=== PATIENT | male | born 1955 | race Caucasian/White ===

== ENCOUNTER 2018-02-18 00:20 | Emergency (ER) | payer MEDICAID, MEDICARE, SELFPAY ==
[2018-02-18 00:57] VITALS: BP 126/71
[2018-02-18] MEDS ORDERED: Acetaminophen/HYDROcodone 325-5 MG Tab PO ONE (01:26)
--- NOTE | 2018-02-18 01:33 | EDM.PDOC ---
ED HPI GENERAL MEDICAL PROBLEM - General Chief Complaint: Lower Extremity Injury/Pain Stated Complaint: LEG PAIN Time Seen by Provider: 02/18/18 01:15 Source of Information: Reports: Patient, Old Records, RN History Limitations: Reports: No Limitations - History of Present Illness INITIAL COMMENTS - FREE TEXT/NARRATIVE: 62 yo male dialysis patient presents with R hip pain. Is in the process of getting a new doctor in [place] soon. Has had on and off R hip pain, he thinks has been called sciatica. He has gotten reasonable relief from hydrocodone in the past, but is out of it. Pain is somewhat worse tonight so comes to the ER. Onset: Unknown/Unsure Duration: Chronic, Waxing/Waning Location: Reports: Lower Extremity, Right Quality: Reports: Ache, Burning Severity: Moderate Improves with: Reports: Medication Worsens with: Reports: Other (unknown) Context: Reports: Other (chronic) Associated Symptoms: Reports: No Other Symptoms Treatments STUDENT COUNSELOR: Reports: Other (see below) (none) - Related Data Allergies Allergy/AdvReac Type Severity Reaction Status Date / Time No Known Allergies Allergy Verified 12/22/16 03:17 Home Meds: Home Meds Aspirin [Halfprin] 81 mg PO DAILY 04/18/15 [History] Metoprolol Tartrate 50 mg PO DAILY 04/18/15 [History] Simvastatin 20 mg PO BEDTIME 04/18/15 [History] Acetaminophen [Tylenol] 650 mg PO Q4H PRN 02/18/18 [History] Past Medical History Other HEENT History: Hollenhorst plague right eye Cardiovascular History: Reports: Aneurysm, High Cholesterol, Hypertension, Other (See Below) Other Cardiovascular History: AAA Respiratory History: Reports: COPD, Other (See Below) Other Respiratory History: home oxygen Genitourinary History: Reports: Acute Renal Failure, Chronic Renal Insuffiency, Dialysis, Renal Calculus, Other (See Below) Other Genitourinary History: last dialysis friday 02/16 Musculoskeletal History: Reports: Fracture, Other (See Below) Other Musculoskeletal History: degenerative hips Psychiatric History: Reports: Addiction, Anxiety, Depression Endocrine/Metabolic History: Reports: Diabetes, Type II Hematologic History: Reports: Other (See Below) Other Hematologic History: hyperkalemia - Infectious Disease History Infectious Disease History: Reports: Chicken Pox - Past Surgical History Other Musculoskeletal Surgeries/Procedures:: broke arm Social & Family History - Family History Respiratory: Reports: Other (See Below) - Tobacco Use Smoking Status *Q: Former Smoker Years of Tobacco use: 44 Packs/Tins Daily: 1 Used Tobacco, but Quit: Yes Month/Year Tobacco Last Used: 2017 - Caffeine Use Caffeine Use: Reports: Coffee - Recreational Drug Use Recreational Drug Use: No Review of Systems - Review of Systems Review Of Systems: See Below Constitutional: Reports: No Symptoms Eyes: Reports: No Symptoms Ears: Reports: No Symptoms Nose: Reports: No Symptoms Mouth/Throat: Reports: No Symptoms Respiratory: Reports: No Symptoms Cardiovascular: Reports: No Symptoms GI/Abdominal: Reports: No Symptoms Genitourinary: Reports: No Symptoms Musculoskeletal: Reports: No Symptoms Skin: Reports: No Symptoms Neurological: Reports: Other (R hip area pain that radiates down his leg to the level of the calf, not worse with weight bearing. ) ED EXAM, GENERAL - Physical Exam Exam: See Below Exam Limited By: No Limitations General Appearance: Alert, WD/WN, No Apparent Distress Back Exam: Normal Inspection. No: CVA Tenderness (R), CVA Tenderness (L), Muscle Spasm, Paraspinal Tenderness, Vertebral Tenderness Extremities: Normal Inspection, Normal Range of Motion, Other (Pain in the R sciatic notch.) Neurological: Other (Straight leg raising positive on the right. ) Psychiatric: Normal Affect, Normal Mood Skin Exam: Warm, Dry, Intact, Normal Color, No Rash Course - Vital Signs Last Recorded V/S: Last Vital Signs Temp 36.8 C 02/18/18 00:56 Pulse 89 02/18/18 00:56 Resp 22 H 02/18/18 00:56 BP 126/71 02/18/18 00:56 Pulse Ox 94 L 02/18/18 00:56 - Orders/Labs/Meds Meds: Medications Discontinued Medications Generic Name Dose Route Start Last Admin Trade Name Freq PRN Reason Stop Dose Admin Hydrocodone Bitart/Acetaminophen 1 tab 02/18/18 01:26 [place] 325-5 Mg PO 02/18/18 01:27 ONETIME ONE Departure - Departure Time of Disposition: 01:33 Disposition: Home, Self-Care 01 Condition: Fair Clinical Impression: Sciatica of right side - Discharge Information Referrals: PCP,None [Primary Care Provider] - Forms: ED Department Discharge Additional Instructions: Take [place] as needed for pain relief. See your family doctor CRISTINA to get further treatment and testing for your current disorder.
== END 2018-02-18 01:56 | disposition home or self-care (01) ==
LOC: JP.ED 00:20
DX: M54.31 Sciatica, right side (principal); I12.9 Hypertensive chronic kidney disease with stage 1 through stage 4 chronic kidney disease, or unspecified chronic kidney disease; E78.00 Pure hypercholesterolemia, unspecified; J44.9 Chronic obstructive pulmonary disease, unspecified; F41.9 Anxiety disorder, unspecified; F32.9 Major depressive disorder, single episode, unspecified; E11.22 Type 2 diabetes mellitus with diabetic chronic kidney disease; Z87.891 Personal history of nicotine dependence; Z99.2 Dependence on renal dialysis; Z87.442 Personal history of urinary calculi; Z79.82 Long term (current) use of aspirin; Z79.899 Other long term (current) drug therapy
CPT/HCPCS: 99283; A9270

== ENCOUNTER 2018-03-09 01:40 | Emergency (ER) | payer MEDICARE ==
[2018-03-09 01:57] VITALS: BP 157/93
[2018-03-09] MEDS ORDERED: LORazepam 1 MG Tab PO ONE (02:20)
--- NOTE | 2018-03-09 02:26 | EDM.PDOC ---
ED HPI GENERAL MEDICAL PROBLEM - General Chief Complaint: General Stated Complaint: MUSCLE SPASMS Time Seen by Provider: 03/09/18 02:00 Source of Information: Reports: Patient History Limitations: Reports: No Limitations - History of Present Illness INITIAL COMMENTS - FREE TEXT/NARRATIVE: 62-year-old male, chronic COPD year, end-stage renal disease on dialysis who is having spasms at night when trying to sleep. It's mostly in his legs. It's been going on for weeks but tonight was worse, he came in because he needs to get some sleep because he has dialysis tomorrow. He has lost touch with his primary provider. He has no fevers or chills, nausea vomiting, diarrhea or rashes. Denies chest pain. Onset: Unknown/Unsure Associated Symptoms: Reports: Shortness of Breath (Shortness of breath is chronic, he is O2 dependent which he shuts off when he is smoking) - Related Data Allergies Allergy/AdvReac Type Severity Reaction Status Date / Time No Known Allergies Allergy Verified 03/09/18 01:57 Home Meds: Home Meds Aspirin [Halfprin] 81 mg PO DAILY 04/18/15 [History] Metoprolol Tartrate 50 mg PO DAILY 04/18/15 [History] Simvastatin 20 mg PO BEDTIME 04/18/15 [History] Acetaminophen [Tylenol] 650 mg PO Q4H PRN 02/18/18 [History] Furosemide 20 mg PO DAILY 03/09/18 [History] Past Medical History HEENT History: Reports: Other (See Below) Other HEENT History: Hollenhorst plague right eye Cardiovascular History: Reports: Aneurysm, High Cholesterol, Hypertension, Other (See Below) Other Cardiovascular History: AAA Respiratory History: Reports: COPD, Other (See Below) Other Respiratory History: home oxygen Genitourinary History: Reports: Acute Renal Failure, Chronic Renal Insuffiency, Dialysis, Renal Calculus, Other (See Below) Other Genitourinary History: last dialysis friday 02/16 Musculoskeletal History: Reports: Fracture, Other (See Below) Other Musculoskeletal History: degenerative hips Psychiatric History: Reports: Addiction, Anxiety, Depression Endocrine/Metabolic History: Reports: Diabetes, Type II Hematologic History: Reports: Other (See Below) Other Hematologic History: hyperkalemia - Infectious Disease History Infectious Disease History: Reports: Chicken Pox - Past Surgical History Musculoskeletal Surgical History: Reports: Other (See Below) Other Musculoskeletal Surgeries/Procedures:: broke arm Social & Family History - Family History Respiratory: Reports: Other (See Below) - Tobacco Use Smoking Status *Q: Current Some Day Smoker Years of Tobacco use: 50 Packs/Tins Daily: 0.5 Used Tobacco, but Quit: Yes Month/Year Tobacco Last Used: 2017 Second Hand Smoke Exposure: Yes - Caffeine Use Caffeine Use: Reports: Coffee - Recreational Drug Use Recreational Drug Use: No ED ROS GENERAL - Review of Systems Review Of Systems: See Below Constitutional: Denies: Fever, Chills Respiratory: Reports: Shortness of Breath, Cough Cardiovascular: Denies: Chest Pain Endocrine: Reports: Fatigue GI/Abdominal: Denies: Nausea, Vomiting Musculoskeletal: Reports: Other (Muscle cramps and spasms) ED EXAM, GENERAL - Physical Exam Exam: See Below Exam Limited By: No Limitations General Appearance: Alert, No Apparent Distress Respiratory/Chest: No Respiratory Distress, Lungs Clear Cardiovascular: Regular Rate, Rhythm Extremities: Other (Occasional spasm of the leg muscle is present but he admits that he is much better now than he was earlier. There is no tenderness to palpation of the lower extremity muscles). No: Pedal Edema Course - Vital Signs Last Recorded V/S: Last Vital Signs Temp 98.2 F 03/09/18 01:54 Pulse 95 03/09/18 01:54 Resp 23 H 03/09/18 01:54 BP 157/93 H 03/09/18 01:54 Pulse Ox 97 03/09/18 01:54 - Orders/Labs/Meds Meds: Medications Discontinued Medications Generic Name Dose Route Start Last Admin Trade Name Autumn PRN Reason Stop Dose Admin Lorazepam 1 mg 03/09/18 02:20 03/09/18 02:32 Ativan PO 03/09/18 02:21 1 mg ONETIME ONE Administration - Re-Assessments/Exams Free Text/Narrative Re-Assessment/Exam: 03/09/18 02:24 This patient is possibly having some muscle spasm secondary to electrolyte abnormalities prior to dialysis. He is receiving dialysis and just a few hours however, I asked him to see Dr. Lazar in [place] if he is not improved after dialysis. He was given 1 mg of Ativan to use for sleep tonight, with a prescription for 5 additional doses to use in the future. Any further medications need to come from a primary care provider. Departure - Departure Time of Disposition: 02:40 Disposition: Home, Self-Care 01 Condition: Fair Clinical Impression: Restless leg syndrome - Discharge Information Instructions: Restless Legs Syndrome Referrals: PCP,None [Primary Care Provider] - Forms: ED Department Discharge Care Plan Goals: Try Ativan up to twice daily to relax the muscles and help sleep. It is very important that you follow up with a primary provider, and receive your dialysis tomorrow as scheduled.
== END 2018-03-09 02:44 | disposition home or self-care (01) ==
LOC: JP.ED 01:40
DX: G25.81 Restless legs syndrome (principal); J44.9 Chronic obstructive pulmonary disease, unspecified; N18.6 End stage renal disease; E11.22 Type 2 diabetes mellitus with diabetic chronic kidney disease; I12.9 Hypertensive chronic kidney disease with stage 1 through stage 4 chronic kidney disease, or unspecified chronic kidney disease; Z79.82 Long term (current) use of aspirin; Z79.899 Other long term (current) drug therapy; Z87.891 Personal history of nicotine dependence
CPT/HCPCS: 99285; A9270

== ENCOUNTER 2018-06-26 21:23 | Emergency (ER) | payer MEDICARE ==
[2018-06-26] MEDS ORDERED: fentaNYL 100 MCG/2 ML SDV IM ONE (22:27)
--- NOTE | 2018-06-26 22:38 | EDM.PDOC ---
ED HPI GENERAL MEDICAL PROBLEM - General Chief Complaint: Lower Extremity Injury/Pain Stated Complaint: FELL HURT LEG Time Seen by Provider: 06/26/18 22:23 Source of Information: Reports: Patient, RN Notes Reviewed History Limitations: Reports: No Limitations - History of Present Illness INITIAL COMMENTS - FREE TEXT/NARRATIVE: 63-year-old gentleman presents to the emergency department today with complaint of right hip pain, he states he fell earlier this morning landing on his right hip the pain has gotten progressively worse throughout the day, he is a dialysis patient as well completed dialysis today he is not taking anything for pain right leg Pain Score (Numeric/FACES): 5 - Related Data Allergies Allergy/AdvReac Type Severity Reaction Status Date / Time No Known Allergies Allergy Verified 06/26/18 21:59 Home Meds: Home Meds Aspirin [Halfprin] 81 mg PO DAILY 04/18/15 [History] Metoprolol Tartrate 50 mg PO DAILY 04/18/15 [History] Simvastatin 20 mg PO BEDTIME 04/18/15 [History] Acetaminophen [Tylenol] 650 mg PO Q4H PRN 02/18/18 [History] Furosemide 20 mg PO DAILY 03/09/18 [History] Past Medical History HEENT History: Reports: Other (See Below) Other HEENT History: Hollenhorst plague right eye Cardiovascular History: Reports: Aneurysm, High Cholesterol, Hypertension, SOB on Exertion, Other (See Below) Other Cardiovascular History: AAA Respiratory History: Reports: COPD, SOB, Other (See Below) Other Respiratory History: home oxygen Gastrointestinal History: Reports: Chronic Diarrhea Genitourinary History: Reports: Acute Renal Failure, Chronic Renal Insuffiency, Dialysis, Renal Calculus, Other (See Below) Other Genitourinary History: last dialysis friday06/01/2018 Musculoskeletal History: Reports: Fracture, Other (See Below) Other Musculoskeletal History: degenerative hips Psychiatric History: Reports: Addiction, Anxiety, Depression Endocrine/Metabolic History: Reports: Diabetes, Type II Hematologic History: Reports: Iron Deficiency, Other (See Below) Other Hematologic History: hyperkalemia - Infectious Disease History Infectious Disease History: Reports: Chicken Pox, Measles, Mumps - Past Surgical History HEENT Surgical History: Reports: None Musculoskeletal Surgical History: Reports: Other (See Below) Other Musculoskeletal Surgeries/Procedures:: broke arm Social & Family History - Family History Family Medical History: Noncontributory Respiratory: Reports: Other (See Below) - Tobacco Use Smoking Status *Q: Current Every Day Smoker Years of Tobacco use: 40 Packs/Tins Daily: 0.5 - Caffeine Use Caffeine Use: Reports: Coffee - Recreational Drug Use Recreational Drug Use: No Review of Systems - Review of Systems Review Of Systems: See Below Constitutional: Reports: No Symptoms Musculoskeletal: Reports: Joint Pain (Right hip pain) Skin: Reports: No Symptoms Neurological: Reports: No Symptoms ED EXAM, GENERAL - Physical Exam Exam: See Below Free Text/Narrative:: Examination of the right hip, will not tolerate any internal/external rotation he is tender to palpation over the greater trochanter Exam Limited By: No Limitations General Appearance: Alert, WD/WN, No Apparent Distress Respiratory/Chest: No Respiratory Distress, Lungs Clear, Normal Breath Sounds, No Accessory Muscle Use Cardiovascular: Regular Rate, Rhythm, No Murmur Course - Vital Signs Last Recorded V/S: Last Vital Signs Temp 98.7 F 06/26/18 22:02 Pulse 97 06/26/18 22:45 Resp 16 06/26/18 22:45 BP 136/77 06/26/18 22:45 Pulse Ox 93 L 06/26/18 22:45 - Orders/Labs/Meds Orders: Active Orders 24 hr Category Date Time Status Peripheral IV Care [RC] . DIRECTED Care 06/27/18 00:33 Ordered Hip Min 2V or 3V Rt [CR] Stat Exams 06/26/18 22:27 Taken Hip wo Cont Rt [CT] Stat Exams 06/26/18 23:04 Taken Sodium Chloride 0.9% [Saline Flush] Med 06/27/18 00:32 Ordered 10 ml FLUSH ASDIRECTED PRN Peripheral IV Insertion Adult [OM.PC] Urgent Oth 06/27/18 00:32 Ordered Medication Orders Sodium Chloride (Saline Flush) 10 ml FLUSH ASDIRECTED PRN PRN Reason: Keep Vein Open Meds: Medications Generic Name Dose Route Start Last Admin Trade Name Freq PRN Reason Stop Dose Admin Sodium Chloride 10 ml 06/27/18 00:32 Saline Flush FLUSH ASDIRECTED PRN Keep Vein Open Discontinued Medications Generic Name Dose Route Start Last Admin Trade Name Freq PRN Reason Stop Dose Admin Fentanyl 50 mcg 06/26/18 22:27 06/26/18 22:32 Sublimaze IM 06/26/18 22:28 50 mcg ONETIME ONE Administration Departure - Departure Time of Disposition: 00:45 Disposition: DC/Tfer to Acute Hospital 02 Condition: Fair Clinical Impression: Closed fracture of single pubic ramus of pelvis Qualifiers: Encounter type: initial encounter Laterality: right Qualified Code(s): S32.591A - Other specified fracture of right pubis, initial encounter for closed fracture Closed right acetabular fracture Qualifiers: Encounter type: initial encounter Sublocation of acetabulum: anterior column Fracture alignment: nondisplaced Qualified Code(s): S32.434A - Nondisplaced fracture of anterior column [iliopubic] of right acetabulum, initial encounter for closed fracture - Discharge Information Referrals: Rodolfo Browning COUNSELING DIRECTOR [Primary Care Provider] - Forms: ED Department Discharge - My Orders Last 24 Hours: My Active Orders 06/26/18 22:27 Hip Min 2V or 3V Rt [CR] Stat 06/26/18 23:04 Hip wo Cont Rt [CT] Stat 06/27/18 00:32 Sodium Chloride 0.9% [Saline Flush] 10 ml FLUSH ASDIRECTED PRN Peripheral IV Insertion Adult [OM.PC] Urgent 06/27/18 00:33 Peripheral IV Care [RC] . DIRECTED - Assessment/Plan Last 24 Hours: My Active Orders 06/26/18 22:27 Hip Min 2V or 3V Rt [CR] Stat 06/26/18 23:04 Hip wo Cont Rt [CT] Stat 06/27/18 00:32 Sodium Chloride 0.9% [Saline Flush] 10 ml FLUSH ASDIRECTED PRN Peripheral IV Insertion Adult [OM.PC] Urgent 06/27/18 00:33 Peripheral IV Care [RC] . DIRECTED Plan: Assessment Acuity = acute Site and laterality = nondisplaced fractures right inferior pubic ramus and right acetabular anterior column Etiology = secondary to a fall Manifestations = none Location of injury = Home Lab values = CT scan describes fractures above Plan Called discussed case with Dr. Madden hospitalist loss control consultant at [facility] kindly accept the patient in transport will be transported via EMS ground , also discussed case with orthopedics on-call Dr. Henderson who recommended nonoperative management at this time touch weightbearing and follow-up with orthopedics This note was dictated using [employer] voice recognition software please call with any questions on syntax or grammar.
[2018-06-27] MEDS ORDERED: Sodium Chloride 0.9% 10 ML Syringe FLUSH PRN (00:32)
[2018-06-27 01:01] VITALS: BP 144/85
--- NOTE | 2018-06-29 08:45 | CR ---
Hip Min 2V or 3V Rt CLINICAL HISTORY: Trauma, pain FINDINGS: No acute fracture or dislocation is noted. No destructive changes are present. The joint sp aces are fairly well maintained. There are moderate atheromatous changes in the aorta and iliac arter ies. The there is a 6.5 cm distal abdominal aortic aneurysm. Impression: No fracture or subluxation Abdominal aortic aneurysm
== END 2018-06-27 01:48 ==
LOC: JP.ED 21:23
DX: S32.434A Nondisplaced fracture of anterior column [iliopubic] of right acetabulum, initial encounter for closed fracture (principal); S32.591A Other specified fracture of right pubis, initial encounter for closed fracture; E78.00 Pure hypercholesterolemia, unspecified; I12.9 Hypertensive chronic kidney disease with stage 1 through stage 4 chronic kidney disease, or unspecified chronic kidney disease; N18.9 Chronic kidney disease, unspecified; E11.22 Type 2 diabetes mellitus with diabetic chronic kidney disease; F41.9 Anxiety disorder, unspecified; F32.9 Major depressive disorder, single episode, unspecified; F17.210 Nicotine dependence, cigarettes, uncomplicated; Z79.82 Long term (current) use of aspirin; Z79.899 Other long term (current) drug therapy; W19.XXXA Unspecified fall, initial encounter
CPT/HCPCS: 73502; 73700; 96372; 99284; J3010; J7050

== ENCOUNTER 2018-07-22 02:25 | Emergency (ER) | payer MEDICARE, MEDICAID ==
--- NOTE | 2018-07-22 03:08 | EDM.PDOC ---
ED HPI GENERAL MEDICAL PROBLEM - General Chief Complaint: Gastrointestinal Problem Time Seen by Provider: 07/22/18 03:08 Source of Information: Reports: Patient History Limitations: Reports: No Limitations - History of Present Illness INITIAL COMMENTS - FREE TEXT/NARRATIVE: pt arrived stating that he has had 5 bloody stools. He did have one while he as here and this was full of clots/ Onset: Today, Sudden Duration: Hour(s): Location: Reports: Abdomen, Other (pt is passing alot of blood. ) Associated Symptoms: Reports: Other (pt is having bloody stools. ) - Related Data Allergies Allergy/AdvReac Type Severity Reaction Status Date / Time No Known Allergies Allergy Verified 07/22/18 03:13 Home Meds: Home Meds Aspirin [Halfprin] 81 mg PO DAILY 04/18/15 [History] Metoprolol Tartrate 50 mg PO DAILY 04/18/15 [History] Simvastatin 20 mg PO BEDTIME 04/18/15 [History] Acetaminophen [Tylenol] 650 mg PO Q4H PRN 02/18/18 [History] Furosemide 20 mg PO DAILY 03/09/18 [History] Hydrocodone/Acetaminophen [Hydrocodon-Acetaminophen 5-325] 1 tab PO TID PRN 07/21 [History] Past Medical History HEENT History: Reports: Other (See Below) Other HEENT History: Hollenhorst plague right eye Cardiovascular History: Reports: Aneurysm, High Cholesterol, Hypertension, SOB on Exertion, Other (See Below) Other Cardiovascular History: AAA Respiratory History: Reports: COPD, SOB, Other (See Below) Other Respiratory History: home oxygen Gastrointestinal History: Reports: Chronic Diarrhea Genitourinary History: Reports: Acute Renal Failure, Chronic Renal Insuffiency, Dialysis, Renal Calculus, Other (See Below) Other Genitourinary History: last dialysis friday06/01/2018 Musculoskeletal History: Reports: Fracture, Other (See Below) Other Musculoskeletal History: degenerative hips Psychiatric History: Reports: Addiction, Anxiety, Depression Endocrine/Metabolic History: Reports: Diabetes, Type II Hematologic History: Reports: Iron Deficiency, Other (See Below) Other Hematologic History: hyperkalemia - Infectious Disease History Infectious Disease History: Reports: Chicken Pox, Measles, Mumps - Past Surgical History Head Surgeries/Procedures: Reports: None HEENT Surgical History: Reports: None Musculoskeletal Surgical History: Reports: Other (See Below) Other Musculoskeletal Surgeries/Procedures:: broke arm Social & Family History - Family History Family Medical History: Noncontributory Respiratory: Reports: Other (See Below) - Caffeine Use Caffeine Use: Reports: Coffee ED ROS GENERAL - Review of Systems Review Of Systems: See Below Constitutional: Reports: No Symptoms HEENT: Reports: No Symptoms Respiratory: Reports: No Symptoms Cardiovascular: Reports: No Symptoms Endocrine: Reports: No Symptoms GI/Abdominal: Reports: Bloody Stool, Other (Pain in his lower abdoman. ) : Reports: No Symptoms Musculoskeletal: Reports: No Symptoms Skin: Reports: No Symptoms Neurological: Reports: No Symptoms ED EXAM, GI/ABD - Physical Exam Exam: See Below Text/Narrative:: Pt arrived having 5 very bloody stools. Exam Limited By: No Limitations General Appearance: Alert, Moderate Distress Ears: Normal TMs Nose: Normal Inspection Throat/Mouth: Normal Inspection Head: Atraumatic Neck: Normal Inspection Respiratory/Chest: No Respiratory Distress Cardiovascular: Regular Rate, Rhythm GI/Abdominal Exam: Soft, Other ( tender in the lower abdoman. ) (Male) Exam: Deferred Rectal (Males) Exam: Deferred Back Exam: Normal Inspection Extremities: Normal Inspection Neurological: Alert, Oriented, Normal Cognition Course - Vital Signs Last Recorded V/S: Last Vital Signs Temp 36.3 C 07/22/18 03:51 Pulse 91 07/22/18 03:51 Resp 18 07/22/18 03:51 BP 149/84 H 07/22/18 03:51 Pulse Ox 95 07/22/18 03:51 - Orders/Labs/Meds Labs: Laboratory Tests 07/22/18 07/22/18 07/22/18 Range/Units 03:00 03:00 03:05 WBC 7.9 (4.5-11.0) K/uL RBC 3.38 L (4.30-5.90) M/uL Hgb 11.6 L (12.0-15.0) g/dL Hct 36.2 L (40.0-54.0) % MCV 107 H (80-98) fL MCH 34 H (27-31) pg MCHC 32 (32-36) % Plt Count 125 L (150-400) K/uL Neut % (Auto) 75 H (36-66) % Lymph % (Auto) 13 L (24-44) % [place] % (Auto) 12 H (2-6) % Eos % (Auto) 0 L (2-4) % Baso % (Auto) 1 (0-1) % Sodium 136 L (140-148) mmol/L Potassium 4.5 (3.6-5.2) mmol/L Chloride 97 L (100-108) mmol/L Carbon Dioxide 29 (21-32) mmol/L Anion Gap 14.5 H (5.0-14.0) mmol/L BUN 45 H D (7-18) mg/dL Creatinine 6.1 H* D (0.8-1.3) mg/dL Est Cr Clr Drug Dosing 11.04 mL/min Estimated GFR (MDRD) 9 L (>60) Glucose 111 H (74-106) mg/dL Calcium 8.4 L (8.5-10.1) mg/dL Total Bilirubin 1.2 H D (0.2-1.0) mg/dL AST 33 (15-37) U/L ALT 21 (12-78) U/L Alkaline Phosphatase 115 (46-116) U/L Total Protein 6.7 (6.4-8.2) g/dL Albumin 2.7 L (3.4-5.0) g/dL Globulin 4.0 H (2.3-3.5) g/dL Albumin/Globulin Ratio 0.7 L (1.2-2.2) Blood Type A POSITIVE Gel Antibody Screen Negative Crossmatch See Detail Meds: Medications Discontinued Medications Generic Name Dose Route Start Last Admin Trade Name Freq PRN Reason Stop Dose Admin Sodium Chloride 1,000 mls @ 100 mls/hr 07/22/18 03:15 07/22/18 03:43 Normal Saline IV 100 mls/hr ASDIRECTED [facility] Administration - Re-Assessments/Exams Free Text/Narrative Re-Assessment/Exam: 07/22/18 03:24 hg was found to be 11.6. He is not on any blood thinners. On rectal exam it was noted that the rectum was full of blood. 07/23/18 07:48 Departure - Departure Time of Disposition: 03:50 Disposition: DC/Tfer to Acute Hospital 02 Condition: Poor Clinical Impression: GI bleeding, Renal insufficiency - Discharge Information Referrals: Rodolfo Browning NP [Primary Care Provider] - Forms: ED Department Discharge Care Plan Goals: transfer to [facility] evaluation of his GI bleeding. He will need in patien dialysis
[2018-07-22] MEDS ORDERED: Sodium Chloride 0.9% 1,000 ML IV SCH (03:15)
[2018-07-22 03:52] VITALS: BP 149/84
== END 2018-07-22 04:04 ==
LOC: JP.ED 02:25
DX: K92.2 Gastrointestinal hemorrhage, unspecified (principal); I12.9 Hypertensive chronic kidney disease with stage 1 through stage 4 chronic kidney disease, or unspecified chronic kidney disease; N18.9 Chronic kidney disease, unspecified; Z79.82 Long term (current) use of aspirin; Z79.899 Other long term (current) drug therapy; E11.22 Type 2 diabetes mellitus with diabetic chronic kidney disease; Z99.2 Dependence on renal dialysis
CPT/HCPCS: 36415; 80053; 85025; 86850; 86900; 86901; 86920; 86922; 99285; J7030